=== PATIENT | male | born 2000 | race Caucasian/White ===

== ENCOUNTER 2019-04-28 22:23 | Emergency (ER) | payer OTHER ==
[~2019-04-28] VITALS: Ht 160 cm; Wt 61.2 kg
[2019-04-29] MEDS ORDERED: CEPH500 PO (00:26)
[2019-04-29] MEDS ORDERED: IBUP600 PO (00:26)
[2019-04-29] MEDS ORDERED: Norco 5-325 Ta1 EACH PO (00:26)
== END 2019-04-29 01:40 | disposition home or self-care (01) ==
LOC: ER 22:23
DX: S51.812A Laceration without foreign body of left forearm, initial encounter (principal); S50.02XA Contusion of left elbow, initial encounter; V89.2XXA Person injured in unspecified motor-vehicle accident, traffic, initial encounter
CPT/HCPCS: 12034; 73080; 90471; 90714; 96365-59; 96372-59; 99284-25; J0690; J1885; J3010